=== PATIENT | male | born 1955 | race Caucasian/White ===

== ENCOUNTER → 2020-12-27 | Outpatient (CLI) | payer OTHER ==
[~2020-12-27] VITALS: Ht 182.9 cm; Wt 104.5 kg
[2020-12-27] MEDS: LIDOCAINE 1% INJ 20 ML 20 ML VIAL INJ ONE ×2 (10:24→11:32)
--- NOTE | 2020-12-27 12:12 | Diagnostic Imaging Report ---
INDICATION: Right thyroid nodule. Patient presents for ultrasound-guided fine-needle aspiration and biopsy. Patient brought to the procedure and placed on table in the supine position. Ultrasound imaging of the right neck was performed to evaluate appropriate entry site. Right neck was then prepped and draped in usual sterile fashion. Small amount of 1% lidocaine was utilized for local anesthesia. Total 4 passes were made into the ill-defined area of hypoechogenicity in the mid to upper pole right lobe of the thyroid utilizing 25-gauge needles and fine-needle aspiration technique. Single pass was made with a Rotex needle and Rotex biopsy was performed. [place] were removed and hemostasis was obtained using manual compression. Patient tolerated procedure well and left the department in stable condition. IMPRESSION: Successful ultrasound-guided fine-needle aspiration and Rotex biopsy of right lobe thyroid nodule. Pathology results are currently pending. Dictated by: Dictated on workstation # [id number]
== END ==
LOC: RAD 10:40
PROVIDERS: ATTEND Otolaryngology Otolaryngology/Facial Plastic Surgery
DX: E04.1 Nontoxic single thyroid nodule (principal)
CPT/HCPCS: 10005